=== PATIENT | male | born 1985 | race Hispanic/Latino ===

== ENCOUNTER 2018-04-20 14:57 | Emergency (ER) | payer BC, OTHER ==
[2018-04-20] MEDS ORDERED: KETOROLAC 30 MG/ML INJ ONE (20:19)
[2018-04-20 20:54] LABS: Absolute Lymphocytes (CBC) 3.6 K/uL (0.7-4.9); Absolute Monocytes 0.7 K/uL (0.1-1.3); Absolute Neutrophil 6.8 K/uL (1.8-8.0); Basophils % 0.3 % (0-1.3); Eosinophils % 0.2 % (0-4.4); Hematocrit 45.5 % (39.6-49.0); MPV 8.1 fL (7.6-11.3); Monocytes % 6.3 % (3.3-12.3); RBC Red Blood Cell Count 5.03 M/uL (4.33-5.43)
[2018-04-20 21:15] LABS: ALT/SGPT 75 U/L (12-78); AST/SGOT 27 U/L (15-37); Albumin 4.2 g/dL (3.4-5.0); Alkaline Phosphatase 92 U/L (45-117); BUN Blood Urea Nitrogen 9 mg/dL (7-18); Bicarbonate 26 mmol/L (21-32); Bilirubin Direct 0.2 mg/dL (0-0.2); Bilirubin Total 0.6 mg/dL (0.2-1.0); Glucose Level 104 mg/dL (74-106); Lipase 139 U/L (73-393); Potassium 3.4 mmol/L (3.5-5.1); Sodium Level 141 mmol/L (136-145)
[2018-04-20 21:27] LABS: Urine Bacteria NONE SEEN /HPF (NONE SEEN); Urine Culture Reflex Order NOT NEEDED; Urine Mucus 1+ /HPF (NONE SEEN); Urine RBC <5 /HPF (NONE SEEN)
[2018-04-20 21:47] LABS: Urine Blood NEGATIVE (NEG); Urine Glucose NEGATIVE (NEG); Urine Protein NEGATIVE (NEG)
[2018-04-20] MEDS ORDERED: NA CHLORIDE 0.9% 1,000 ML ONE (22:16)
--- NOTE | 2018-04-20 22:22 | RAD REPORT ---
EXAM DESCRIPTION: Ghazala Sylvester (2 Views)04/20/2018 8:28 pm CLINICAL HISTORY: Abdominal pain COMPARISON: None FINDINGS: The lungs appear clear of acute infiltrate. The heart is normal size IMPRESSION: No acute abnormalities displayed
--- NOTE | 2018-04-20 23:57 | ER ---
Nurse's Notes [facility] Name: Judson Leos III Age: 32 yrs Sex: Male : 1985 Arrival Date: 04/20/2018 Time: 15:06 Bed 14 Private MD: Diagnosis: abdominal pain Presentation: 04/20 15:15 Presenting complaint: Patient states: Right flank pain for 2 days with loose stools. aj Patient is tender on palpation. Denies urinary symptoms. Reports recent alcohol binge. Transition of care: patient was not received from another setting of care. Onset of symptoms was April 18, 2018. Risk Assessment: Do you want to hurt yourself or someone else? Patient reports no desire to harm self or others. Initial Sepsis Screen: Does the patient meet any 2 criteria? No. Patient's initial sepsis screen is negative. Does the patient have a suspected source of infection? No. Patient's initial sepsis screen is negative. Care prior to arrival: None. 15:15 Method Of Arrival: Ambulatory 15:15 Acuity: YOON 3 aj Triage Assessment: 15:16 General: Appears in no apparent distress. comfortable, Behavior is calm, cooperative, aj appropriate for age. Pain: Complains of pain in anterior aspect of right lateral abdomen and posterior aspect of right lateral abdomen. Neuro: Level of Consciousness is awake, alert, obeys commands, Oriented to person, place, time, situation, Appropriate for age. Respiratory: Airway is patent Respiratory effort is even, unlabored, Respiratory pattern is regular, symmetrical. GI: Abdomen is flat. Derm: Skin is intact, is healthy with good turgor, Skin is pink, warm \T\ dry. normal. Historical: - Allergies: 15:16 Amoxicillin; aj - Home Meds: 15:16 None [Active]; aj - PMHx: 15:16 Bowel Obstruction; Elevated Liver Enzymes; aj - PSHx: 15:16 None; aj - Immunization history:: Adult Immunizations up to date. - Social history:: Smoking status: Patient/guardian denies using tobacco, Patient uses alcohol, patient/guardian reports recent binge of alcohol consumption. - Ebola Screening: : Patient negative for fever greater than or equal to 101.5 degrees Fahrenheit, and additional compatible Ebola Virus Disease symptoms Patient denies exposure to infectious person Patient denies travel to an Ebola-affected area in the 21 days before illness onset No symptoms or risks identified at this time. - Family history:: not pertinent. - Hospitalizations: : No recent hospitalization is reported. Screenin:40 Abuse screen: Denies threats or abuse. Denies injuries from another. Nutritional cc3 screening: No deficits noted. Tuberculosis screening: No symptoms or risk factors identified. Fall Risk Ambulatory Aid- None/Bed Rest/Nurse Assist (0 pts). Gait- Normal/Bed Rest/Wheelchair (0 pts) Mental Status- Oriented to own ability (0 pts). Assessment: 19:40 General: Appears in no apparent distress. comfortable, Behavior is calm, cooperative, cc3 appropriate for age. 19:40 GI: Bowel sounds present X 4 quads. Abd is soft and non tender. cc3 20:30 Reassessment: Patient appears in no apparent distress at this time. Patient and/or cc3 family updated on plan of care and expected duration. Pain level reassessed. Patient is alert, oriented x 3, equal unlabored respirations, skin warm/dry/pink. 21:18 Reassessment: Patient appears in no apparent distress at this time. Patient and/or cc3 family updated on plan of care and expected duration. Pain level reassessed. Patient is alert, oriented x 3, equal unlabored respirations, skin warm/dry/pink. 22:47 Reassessment: Patient appears in no apparent distress at this time. Patient and/or cc3 family updated on plan of care and expected duration. Pain level reassessed. Patient is alert, oriented x 3, equal unlabored respirations, skin warm/dry/pink. 23:15 Reassessment: Patient appears in no apparent distress at this time. Patient and/or cc3 family updated on plan of care and expected duration. Pain level reassessed. Patient is alert, oriented x 3, equal unlabored respirations, skin warm/dry/pink. 04/21 00:15 Reassessment: Patient appears in no apparent distress at this time. Patient and/or cc3 family updated on plan of care and expected duration. Pain level reassessed. Patient is alert, oriented x 3, equal unlabored respirations, skin warm/dry/pink. Dr. Mayorga discharged the patient home with prescription given. IV cannula removed and patient left ER vitally stable and ambulatory. Vital Signs: 04/20 15:16 BP 154 / 89; Pulse 69; Resp 20; Temp 98.2; Pulse Ox 97% on R/A; Weight 90.72 kg; Height aj 5 ft. 9 in. (175.26 cm); 20:05 BP 112 / 63; Pulse 73; Resp 17 S; Pulse Ox 97% on R/A; cc3 21:12 BP 115 / 77; Pulse 72; Resp 18 S; Pulse Ox 96% on R/A; cc3 22:45 BP 131 / 78; Pulse 72; Resp 17 S; Pulse Ox 97% on R/A; cc3 23:15 BP 120 / 74; Pulse 75; Resp 16 S; Pulse Ox 96% on R/A; cc3 04/21 00:25 BP 124 / 91; Pulse 80; Resp 17 S; Pulse Ox 97% on R/A; cc3 04/20 15:16 Body Mass Index 29.53 (90.72 kg, 175.26 cm) aj ED Course: 04/20 15:06 Patient arrived in ED. mr 15:16 Triage completed. aj 15:16 Arm band placed on left wrist. Patient placed in waiting room, Patient notified of wait aj time. 19:31 Cori Hall is Primary Nurse. cc3 19:36 Abe Mayorga MD is Attending Physician. wa 19:40 Patient has correct armband on for positive identification. Bed in low position. Call cc3 light in reach. Side rails up X 1. Pulse ox on. NIBP on. 20:24 X-ray completed. Patient tolerated procedure well. Patient moved to radiology via kp1 wheelchair. Patient moved back from radiology. 20:26 Chest Pa And Lat (2 Views) XRAY In Process Unspecified. EDMS 20:36 Radiology exam delayed due to lab results not completed at this time. (BUN/Creatinine). kw1 21:01 Inserted saline lock: 22 gauge in right forearm, using aseptic technique. Blood oe collected. 22:01 CT Abd/Pelvis - W/Contrast In Process Unspecified. EDMS 04/21 00:15 No provider procedures requiring assistance completed. IV discontinued, intact, cc3 bleeding controlled, No redness/swelling at site. Pressure dressing applied. Administered Medications: 04/20 20:50 Drug: TORadol 30 mg Route: IVP; Site: right antecubital; cc3 21:30 Follow up: Response: No adverse reaction; Pain is decreased cc3 22:05 Drug: NS 0.9% 1000 ml Route: IV; Rate: 1000 ml; Site: right antecubital; cc3 23:05 Follow up: Response: No adverse reaction; IV Status: Completed infusion; IV Intake: cc3 1000ml Intake: 23:05 IV: 1000ml; Total: 1000ml. cc3 Outcome: 23:56 Discharge ordered by MD. hathaway 04/21 00:15 Discharged to home ambulatory. cc3 Condition: stable Discharge instructions given to patient, Instructed on discharge instructions, follow up and referral plans. medication usage, Demonstrated understanding of instructions, follow-up care, medications, Prescriptions given X 1. 00:39 Patient left the ED. cc3 Signatures: Dispatcher [employer] Junie Hernandez, CHAU Ramirez, Edna Pompainosa, Omaira Merritt kp1 Abe Mayorga MD MD wa Wilhelm, Kimberly kw1 Cori Hall cc3 Corrections: (The following items were deleted from the chart) 06:00 00:15 Reassessment: Patient appears in no apparent distress at this time. Patient cc3 and/or family updated on plan of care and expected duration. Pain level reassessed. Patient is alert, oriented x 3, equal unlabored respirations, skin warm/dry/pink. Dr. Mayorga discharged the patient home with prescription given. IV cannula removed. Patient requested for a copy of his CT scan result, informed gas plant technician Tammi at her extension [phone] and said she will come to give the patient his copy. cc3
--- NOTE | 2018-04-20 23:57 | EDPHYS ---
Physician Documentation [facility] Name: Judson Leos III Age: 32 yrs Sex: Male : 1985 Arrival Date: 04/20/2018 Time: 15:06 Bed 14 Private MD: ED Physician Abe Mayorga HPI: 04/20 21:31 This 32 yrs old Male presents to ER via Ambulatory with complaints of wa Abdominal Pain. 21:31 The patient complains of pain in the right flank. The pain does not radiate. Onset: The wa symptoms/episode began/occurred 2 day(s) ago. Modifying factors: The symptoms are alleviated by nothing. the symptoms are aggravated by movement, palpation/percussion. Associated signs and symptoms: The patient has no apparent associated signs or symptoms. Severity of pain: At its worst the pain was moderate in the emergency department the pain is unchanged. The patient has not experienced similar symptoms in the past. The patient has not recently seen a physician. Historical: - Allergies: 15:16 Amoxicillin; aj - Home Meds: 15:16 None [Active]; aj - PMHx: 15:16 Bowel Obstruction; Elevated Liver Enzymes; aj - PSHx: 15:16 None; aj - Immunization history:: Adult Immunizations up to date. - Social history:: Smoking status: Patient/guardian denies using tobacco, Patient uses alcohol, patient/guardian reports recent binge of alcohol consumption. - Ebola Screening: : Patient negative for fever greater than or equal to 101.5 degrees Fahrenheit, and additional compatible Ebola Virus Disease symptoms Patient denies exposure to infectious person Patient denies travel to an Ebola-affected area in the 21 days before illness onset No symptoms or risks identified at this time. - Family history:: not pertinent. - Hospitalizations: : No recent hospitalization is reported. ROS: 21:32 Constitutional: Negative for fever, chills, and weight loss, Eyes: Negative for injury, wa pain, redness, and discharge, ENT: Negative for injury, pain, and discharge, Neck: Negative for injury, pain, and swelling, Cardiovascular: Negative for chest pain, palpitations, and edema, Respiratory: Negative for shortness of breath, cough, wheezing, and pleuritic chest pain, Back: Negative for injury and pain, : Negative for injury, bleeding, discharge, and swelling, MS/Extremity: Negative for injury and deformity, Skin: Negative for injury, rash, and discoloration, Neuro: Negative for headache, weakness, numbness, tingling, and seizure, Psych: Negative for depression, anxiety, suicide ideation, homicidal ideation, and hallucinations. 21:32 Abdomen/GI: Positive for abdominal pain, of the right flank and abdomen. Exam: 21:33 Constitutional: This is a well developed, well nourished patient who is awake, alert, wa and in no acute distress. Head/Face: Normocephalic, atraumatic. Eyes: Pupils equal round and reactive to light, extra-ocular motions intact. Lids and lashes normal. Conjunctiva and sclera are non-icteric and not injected. Cornea within normal limits. Periorbital areas with no swelling, redness, or edema. ENT: Nares patent. No nasal discharge, no septal abnormalities noted. Tympanic membranes are normal and external auditory canals are clear. Oropharynx with no redness, swelling, or masses, exudates, or evidence of obstruction, uvula midline. Mucous membranes moist. Neck: Trachea midline, no thyromegaly or masses palpated, and no cervical lymphadenopathy. Supple, full range of motion without nuchal rigidity, or vertebral point tenderness. No Meningismus. Chest/axilla: Normal chest wall appearance and motion. Nontender with no deformity. No lesions are appreciated. Cardiovascular: Regular rate and rhythm with a normal S1 and S2. No gallops, murmurs, or rubs. Normal PMI, no JVD. No pulse deficits. Respiratory: Lungs have equal breath sounds bilaterally, clear to auscultation and percussion. No rales, rhonchi or wheezes noted. No increased work of breathing, no retractions or nasal flaring. Back: No spinal tenderness. No costovertebral tenderness. Full range of motion. Skin: Warm, dry with normal turgor. Normal color with no rashes, no lesions, and no evidence of cellulitis. MS/ Extremity: Pulses equal, no cyanosis. Neurovascular intact. Full, normal range of motion. Neuro: Awake and alert, GCS 15, oriented to person, place, time, and situation. Cranial nerves II-XII grossly intact. Motor strength 5/5 in all extremities. Sensory grossly intact. Cerebellar exam normal. Normal gait. Psych: Awake, alert, with orientation to person, place and time. Behavior, mood, and affect are within normal limits. 21:33 Abdomen/GI: Inspection: abdomen appears normal, Bowel sounds: normal, in all quadrants, Palpation: soft, in all quadrants, moderate abdominal tenderness, in the right upper quadrant, R flank. Vital Signs: 15:16 BP 154 / 89; Pulse 69; Resp 20; Temp 98.2; Pulse Ox 97% on R/A; Weight 90.72 kg; Height aj 5 ft. 9 in. (175.26 cm); 20:05 BP 112 / 63; Pulse 73; Resp 17 S; Pulse Ox 97% on R/A; cc3 21:12 BP 115 / 77; Pulse 72; Resp 18 S; Pulse Ox 96% on R/A; cc3 22:45 BP 131 / 78; Pulse 72; Resp 17 S; Pulse Ox 97% on R/A; cc3 23:15 BP 120 / 74; Pulse 75; Resp 16 S; Pulse Ox 96% on R/A; cc3 04/21 00:25 BP 124 / 91; Pulse 80; Resp 17 S; Pulse Ox 97% on R/A; cc3 04/20 15:16 Body Mass Index 29.53 (90.72 kg, 175.26 cm) aj MDM: 04/20 19:36 Patient medically screened. ms 21:33 Differential diagnosis: nephrolithiasis, pyelonephritis, UTI, r/o appy. consider bowel wa obstruction. 21:35 Data reviewed: vital signs, nurses notes. Test interpretation: by ED physician or ms midlevel provider: nml liver enzymes. noted K of 3.4. wbc 11.2. Test interpretation: by ED physician or midlevel provider: nml CXR. 23:31 Test interpretation: by ED physician or midlevel provider: CT abd/pelvis: hepatic wa steatosis. . 23:34 Test interpretation: by ED physician or midlevel provider: CT abd/pelvis: Hepatic wa steatosis. non-specific fat stranding in the right anterolateral peripheral mesentery. consider contusion. Response to treatment: the patient's symptoms have markedly improved after treatment. 23:55 ED course: improved. will have f/u closely with PMD. immediate return for any worsening.ms 04/20 20:01 Order name: Basic Metabolic Panel; Complete Time: 21:35 04/20 20:01 Order name: CBC with Diff; Complete Time: 21:35 04/20 20:01 Order name: Hepatic Function; Complete Time: 21:35 04/20 20:01 Order name: Lipase; Complete Time: 21:35 04/20 20:01 Order name: Urine Microscopic Only; Complete Time: 21:35 04/20 21:06 Order name: Urine Dipstick--Ancillary (enter results); Complete Time: 21:59 em1 04/20 20: Order name: IV Saline Lock; Complete Time: 20:55 ms 04/20 20:01 Order name: Labs collected and sent; Complete Time: 20:55 04/20 20: Order name: Urine Dipstick-Ancillary (obtain specimen); Complete Time: 20:55 04/20 20: Order name: Chest Pa And Lat (2 Views) XRAY ms 04/20 20:01 Order name: CT Abd/Pelvis - W/Contrast ms Administered Medications: 20:50 Drug: TORadol 30 mg Route: IVP; Site: right antecubital; cc3 21:30 Follow up: Response: No adverse reaction; Pain is decreased cc3 22:05 Drug: NS 0.9% 1000 ml Route: IV; Rate: 1000 ml; Site: right antecubital; cc3 23:05 Follow up: Response: No adverse reaction; IV Status: Completed infusion; IV Intake: cc3 1000ml Disposition: 04/20/18 23:56 Discharged to Home. Impression: abdominal pain. - Condition is Stable. - Discharge Instructions: Abdominal Pain, Adult, [id number]. - Prescriptions for Ibuprofen 600 mg Oral Tablet - take 1 tablet by ORAL route every 6 hours As needed take with food; 30 tablet. - Medication Reconciliation Form, Thank You Letter, Antibiotic Education, Prescription Opioid Use, Work release form form. - Follow up: Private Physician; When: 2 - 3 days; Reason: Recheck today's complaints. - Problem is new. - Symptoms have improved. - Notes: take pain medication as prescribed. return for any worsenign concerns. follow up with your doctor within 2-3 days for further evaluation Signatures: Dispatcher [employer] Junie Hernandez RN RN aj Appiah, William, MD MD wa Cordel, Charlene cc3 Corrections: (The following items were deleted from the chart) 04/21 00:39 04/20 23:56 04/20/2018 23:56 Discharged to Home. Impression: abdominal pain. Condition cc3 is Stable. Forms are Medication Reconciliation Form, Thank You Letter, Antibiotic Education, Prescription Opioid Use. Follow up: Private Physician; When: 2 - 3 days; Reason: Recheck today's complaints. Problem is new. Symptoms have improved. wa
--- NOTE | 2018-04-21 10:39 | RAD REPORT ---
EXAM DESCRIPTION: CTAbdomen Pelvis W Contrast - 04/21/2018 3:28 am CLINICAL HISTORY: Abdominal pain. R flank pain COMPARISON: Abdomen Pelvis W Contrast dated 12/27/2017 TECHNIQUE: Biphasic CT imaging of the abdomen and pelvis was performed with 100 ml non-ionic IV cont rast. All CT scans are performed using dose optimization technique as appropriate and may include automated exposure control or mA/KV adjustment according to patient size. FINDINGS: The lung bases are clear. The liver demonstrates diffuse fatty infiltration. Spleen, pancreas, adrenal glands and kidneys are w ithin normal limits. 3 mm cyst left kidney, benign. No bowel obstruction, free air, free fluid or abscess. Mild nonspecific fat stranding in the lateral anterior right peripheral mesenteric fat. The appendix is normal. No evidence of significant lymphad enopathy. No suspicious bony findings. IMPRESSION: Small area of nonspecific fat stranding is seen in the lateral right anterior peripheral mesenteric fat. Consider followup CT in 2-3 months to ensure resolution of this finding. Fatty liver.
== END 2018-04-21 00:39 | disposition home or self-care (01) ==
LOC: ER 14:57
DX: R10.9 Unspecified abdominal pain (principal)
CPT/HCPCS: 36415; 71046; 74177; 80048; 80076; 81003; 81015; 83690; 85025; 96361; 96374; 99284; J7030; Q9967